=== PATIENT | male | born 1975 | race Asian ===

== ENCOUNTER 2023-08-31 22:23 | Emergency (ER) | payer BC ==
[2023-08-31 22:43] VITALS: BP 128/85; PULSE 89; RESP 18; TEMP 98.6; BMI 26.6
[2023-09-01 00:57] LABS: BASO % 0.8 % (0-2.0); EOS % 2.5 % (0-4.5); HEMOGLOBIN 15.9 GM/dL (11.7-16.9); MCH 29.2 pg (25.7-33.7); MCHC 34.7 g/dl (32.0-35.9); MEAN CELL VOLUME 84.3 fl (80-96); MONO % 7.3 % (3.8-10.2); NEUT % 55.4 % (42.8-82.8); PLATELET COUNT 343 10^3/uL (134-434); RBC 5.46 M/mm3 (4.00-5.60); RDW 13.7 % (11.9-15.9); WHITE BLOOD COUNT 9.7 K/mm3 (4.0-10.0)
[2023-09-01 01:04] LABS: INR 1.06 (0.83-1.09); PROTHROMBIN TIME (PATIENT) 12.3 SEC (9.7-13.0)
[2023-09-01 01:07] LABS: ACTIVATED PTT 36.7 SECONDS (25.2-36.5)
[2023-09-01 01:15] LABS: POTASSIUM 3.8 mmol/L (3.5-5.1)
[2023-09-01 01:17] LABS: CALCIUM 9.2 mg/dL (8.5-10.1)
[2023-09-01 01:18] LABS: ALBUMIN 4.2 g/dl (3.4-5.0); BLOOD UREA NITROGEN 9.5 mg/dL (7-18); MAGNESIUM 1.9 mg/dL (1.8-2.4)
[2023-09-01 01:22] LABS: TOT PROT 7.5 g/dl (6.4-8.2)
[2023-09-01 01:23] LABS: BILIRUBIN,TOTAL 0.8 mg/dL (0.2-1)
== END 2023-09-01 02:10 | disposition left against medical advice (07) ==
LOC: JER 22:23
DX: R07.9 Chest pain, unspecified (principal); R06.02 Shortness of breath
CPT/HCPCS: 36415; 71046-TC-FY; 80053; 83735; 84484; 85025; 85610; 85730; 93005; 93010; 99285-25